=== PATIENT | female | born 1945 | race African-American/Black ===

== ENCOUNTER 2022-06-14 17:17 | Observation (INO) | payer OTHER ==
[2022-06-14 17:23] VITALS: BMI 28.1
[2022-06-14] MEDS ORDERED: methylPREDNISolone NA SUCC 125 MG/2 ML VIAL ONE ×2 (17:33→17:34)
[2022-06-14] MEDS ORDERED: FAMOTIDINE 20 MG/50 ML IVPB 20 MG/50 ML MG IVPB ONE ×2 (17:34→17:44)
[2022-06-14] MEDS ORDERED: methylPREDNISolone NA SUCC 125 MG/2 ML VIAL IVPUSH ONE (17:44)
[2022-06-14 21:14] LABS: BASO % 0.3 % (0-2.0); EOS % 0.3 % (0-4.5); HEMATOCRIT 39.2 % (32.4-45.2); HEMOGLOBIN 13.1 GM/dL (10.7-15.3); LYMPH % 19.5 % (8-40); MCH 25.8 pg (25.7-33.7); MCHC 33.4 g/dl (32.0-36.0); MEAN CELL VOLUME 77.4 fl (80-96); MEAN PLT VOLUME 8.4 fl (7.5-11.1); MONO % 1.8 % (3.8-10.2); NEUT % 78.1 % (42.8-82.8); PLATELET COUNT 238 10^3/uL (134-434); RBC 5.07 M/mm3 (3.60-5.2); RDW 14.7 % (11.6-15.6); WHITE BLOOD COUNT 10.7 K/mm3 (4.0-10.0)
[2022-06-14 21:44] LABS: BLOOD UREA NITROGEN 24.2 mg/dL (7-18); CALCIUM 9.8 mg/dL (8.5-10.1)
[2022-06-14 21:48] LABS: CREATININE 0.9 mg/dL (0.55-1.3)
[2022-06-14 21:49] LABS: BILIRUBIN,TOTAL 0.5 mg/dL (0.2-1); TOT PROT 7.7 g/dl (6.4-8.2)
[2022-06-15 07:36] LABS: CALCIUM 9.6 mg/dL (8.5-10.1)
[2022-06-15 07:37] LABS: ALBUMIN 3.7 g/dl (3.4-5.0); BLOOD UREA NITROGEN 21.1 mg/dL (7-18)
[2022-06-15 07:41] LABS: CREATININE 0.9 mg/dL (0.55-1.3)
[2022-06-15 07:42] LABS: BILIRUBIN,TOTAL 0.4 mg/dL (0.2-1)
[2022-06-15 07:43] LABS: TOT PROT 7.3 g/dl (6.4-8.2)
[2022-06-15 08:00] LABS: BASO % 0.1 % (0-2.0); HEMATOCRIT 38.8 % (32.4-45.2); LYMPH % 15.7 % (8-40); MCH 25.7 pg (25.7-33.7); MCHC 33.4 g/dl (32.0-36.0); MEAN PLT VOLUME 8.7 fl (7.5-11.1); MONO % 0.6 % (3.8-10.2); NEUT % 83.6 % (42.8-82.8); PLATELET COUNT 240 10^3/uL (134-434); RBC 5.05 M/mm3 (3.60-5.2); RDW 14.8 % (11.6-15.6); WHITE BLOOD COUNT 10.2 K/mm3 (4.0-10.0)
[2022-06-15] MEDS ORDERED: methylPREDNISolone NA SUCC 40 MG/1 ML VIAL ONE (08:59)
[2022-06-15] MEDS: methylPREDNISolone NA SUCC 40 MG/1 ML VIAL IVPUSH SCH (09:02)
[2022-06-15] MEDS ORDERED: amLODIPine BESYLATE 10 MG TABLET (FP) ONE (10:22)
[2022-06-15] MEDS: amLODIPine BESYLATE 10 MG TABLET (FP) PO SCH (10:23)
[2022-06-16] MEDS: amLODIPine BESYLATE 10 MG TABLET (FP) PO SCH (10:08)
[2022-06-16] MEDS: methylPREDNISolone NA SUCC 40 MG/1 ML VIAL IVPUSH SCH (10:08)
[2022-06-17] MEDS: methylPREDNISolone NA SUCC 40 MG/1 ML VIAL IVPUSH SCH (09:33)
[2022-06-17] MEDS: amLODIPine BESYLATE 10 MG TABLET (FP) PO SCH (09:33)
[2022-06-17 10:14] VITALS: BP 146/85; PULSE 95; RESP 18; TEMP 98
== END 2022-06-17 11:44 | disposition home or self-care (01) ==
LOC: JER 17:17 → UNDOADMOB 18:15 → JERBED 18:15 → OBSVTOIN 23:48 → INTOOBSV 23:48 → J4W 06-15 18:53
PROVIDERS: ADMIT Internal Medicine; ATTEND Internal Medicine
PROC: 3E033GC Introduction of Other Therapeutic Substance into Peripheral Vein, Percutaneous Approach (ICD-10-PCS; principal; 2022-06-14)
DX: U07.1 COVID-19 (principal); T78.3XXA Angioneurotic edema, initial encounter; E11.9 Type 2 diabetes mellitus without complications; I10 Essential (primary) hypertension
CPT/HCPCS: 36415; 71045-TC-FY; 80053; 84443; 85025; 85651; 86140; 93005; 93010; 96365; 96374; 96375; 99285-25; C9803-CS; G0378; U0003; U0005